=== PATIENT | male | born 1990 | race Caucasian/White ===

== ENCOUNTER 2024-03-15 08:53 | Emergency (ER) | payer SELFPAY ==
--- NOTE | 2024-03-15 09:24 | ED ---
General Adult HPI - General Chief complaint: Syncope Stated complaint: syncope Time Seen by Provider: 03/15/24 08:58 Source: patient, EMS, RN notes reviewed Mode of arrival: EMS Limitations: no limitations - History of Present Illness Initial comments: Patient is a 33-year-old male present to the emergency department as a transfer from [place]. Patient has been there for 4 days for alcohol and opiate use. Patient states he suddenly became dizzy. Patient felt lightheaded as well as somewhat of a spinning sensation. Patient states his heart was racing a little bit and he lowered himself towards the ground and then did lose consciousness for at least a second. No injury. No reported seizure. No history of similar symptoms previously. Patient states he has near normal at this time however feels that his heart rate might be a little bit increased. No dyspnea. No confusion. No headache. No weakness. No history of similar symptoms previously. - Related Data Home Medications Medication Instructions Recorded Confirmed Acetaminophen [Tylenol] 650 mg PO Q4H PRN MDD 2600mg 03/15/24 03/15/24 Calcium Phos/D3/Magnesium/Zinc 1 tab PO TID PRN 03/15/24 03/15/24 [Xiamnkv-Xov-Yfsx-Vitamin D3] Chlorpheniramine Maleate 4 mg PO Q4H PRN 03/15/24 03/15/24 [Chlor-Trimeton] Gabapentin [Neurontin] 300 mg PO TID 03/15/24 03/15/24 Hyoscyamine Sulfate [Levsin] 0.125 mg PO QID PRN 03/15/24 03/15/24 Ibuprofen [Motrin Ib] 600 mg PO Q6H PRN 03/15/24 03/15/24 Loperamide HCl [Imodium A-D] 4 mg PO QID PRN MDD 16 mg 03/15/24 03/15/24 Multivitamins, Thera [Multivitamin 1 tab PO DAILY 03/15/24 03/15/24 (formulary)] Thiamine [Vitamin B-1] 100 mg PO DAILY 03/15/24 03/15/24 cloNIDine HCL [Catapres] 0.1 mg PO Q4H PRN 03/15/24 03/15/24 ondansetron HCL [Zofran] 8 mg PO Q6H PRN 03/15/24 03/15/24 Allergies Allergy/AdvReac Type Severity Reaction Status Date / Time Penicillins AdvReac Nausea & Verified 03/15/24 10:13 Vomiting Review of Systems ROS Statement: Those systems with pertinent positive or pertinent negative responses have been documented in the HPI. ROS Other: All systems not noted in ROS Statement are negative. Constitutional: Denies: fever Eyes: Denies: eye pain ENT: Denies: ear pain Respiratory: Denies: cough, dyspnea Cardiovascular: Reports: as per HPI, palpitations. Denies: chest pain Endocrine: Denies: fatigue Gastrointestinal: Denies: abdominal pain Musculoskeletal: Denies: back pain Neurological: Reports: as per HPI. Denies: headache, weakness, confusion Past Medical History Additional Past Medical History / Comment(s): Hep C History of Any Multi-Drug Resistant Organisms: None Reported Past Surgical History: Adenoidectomy Additional Past Surgical History / Comment(s): Left leg lucien placed Past Psychological History: Anxiety Smoking Status: Current every day smoker, Vaper Past Alcohol Use History: Daily Past Drug Use History: Heroin, Prescription Drug Abuse General Exam Limitations: no limitations General appearance: alert, in no apparent distress Head exam: Present: atraumatic, normocephalic Eye exam: Present: normal appearance, PERRL, EOMI. Absent: nystagmus Neck exam: Present: normal inspection. Absent: tenderness Respiratory exam: Present: normal lung sounds bilaterally Cardiovascular Exam: Present: regular rate, normal rhythm Expanded Peripheral pulses: 2+: Radial (R), Radial (L), Posterior Tibialis (R), Posterior Tibialis (L) GI/Abdominal exam: Present: soft. Absent: distended, tenderness, pulsatile mass Extremities exam: Present: normal inspection, full ROM. Absent: tenderness Neurological exam: Present: alert, oriented X3, CN II-XII intact. Absent: motor sensory deficit Expanded Neurological exam: Present: protecting the airway Speech: Present: fluid speech Cranial nerves: EOM's Intact: Normal Sensory exam: Upper Extremity Light Touch: Normal, Lower Extremity Light Touch: Normal Motor strength exam: RUE: 5, LUE: 5, RLE: 5, LLE: 5 Eye Response: (4) open spontaneously Motor Response: (6) obeys commands Verbal Response: (5) oriented Psychiatric exam: Present: normal affect, normal mood Skin exam: Present: normal color Course Vital Signs 03/15/24 03/15/24 08:54 10:05 Temperature 97.3 F L Pulse Rate 90 100 Respiratory 18 18 Rate Blood Pressure 126/88 121/76 O2 Sat by Pulse 97 96 Oximetry EKG Findings - EKG Results: EKG: interpreted by CHRISTOD, sinus rhythm, normal axis, normal QRS, normal ST/T Medical Decision Making - Medical Decision Making Was pt. sent in by a medical professional or institution (, PA, LIVING MANAGER, urgent care, hospital, or longterm...) When possible be specific @ -Patient was sent from [facility] Did you speak to anyone other than the patient for history (EMS, parent, family, police, friend...)? What history was obtained from this source @ -No Did you review nursing and triage notes (agree or disagree)? Why? @ -I reviewed and agree with nursing and triage notes Were old charts reviewed (outside hosp., previous admission, EMS record, old EKG, old radiological studies, urgent care reports/EKG's, longterm records)? Report findings @ -Chart reviewed from [facility] Differential Diagnosis (chest pain, altered mental status, abdominal pain women, abdominal pain men, vaginal bleeding, weakness, fever, dyspnea, syncope, headache, dizziness, GI bleed, back pain, seizure, CVA, palpatations, mental health, musculoskeletal)? @ -Differential Syncope: Valvular disease, hypertrophic cardiomyopathy, pulmonary embolism, tamponade, tachycardia, bradycardia, AL, hypovolemia, hemorrhage, dissection, anemia, intracranial hemorrhage, seizure, hypoglycemia, carbon monoxide poisoning, this is not meant to be an all-inclusive list. EKG interpreted by me (3pts min.). @ -As above X-rays interpreted by me (1pt min.). @ -Chest x-ray shows no acute process CT interpreted by me (1pt min.). @ -CT brain reveals no acute process. CT chest shows no definitive pulmonary embolism. There is limitation U/S interpreted by me (1pt. min.). @ -None done What testing was considered but not performed or refused? (CT, X-rays, U/S, labs)? Why? @ -None What meds were considered but not given or refused? Why? @ -None Did you discuss the management of the patient with other professionals (shantanu angeles i.eRick Mitchell, PA, LIVING MANAGER, lab, RT, psych nurse, social service technician, investigations director, teacher, chairman & chief executive officer, piano case and bench assembler)? Give summary @ -No Was smoking cessation discussed for >3mins.? @ -No Was critical care preformed (if so, how long)? @ -No Were there social determinants of health that impacted care today? How? (Homelessness, low income, unemployed, alcoholism, drug addiction, transportation, low edu. Level, literacy, decrease access to med. care, alf, rehab)? @ -No Was there de-escalation of care discussed even if they declined (Discuss DNR or withdrawal of care, Hospice)? DNR status @ -No What co-morbidities impacted this encounter? (DM, HTN, Smoking, COPD, CAD, Cancer, CVA, ARF, Chemo, Hep., AIDS, mental health diagnosis, sleep apnea, morbid obesity)? @ -None Was patient admitted / discharged? Hospital course, mention meds given and route, prescriptions, significant lab abnormalities, going to OR and other pertinent info. @ -Patient presents with syncopal episode. Symptom-free on reevaluation. Patient denies ever having any chest discomfort or dyspnea. CT chest is not definitive however there is no large or central embolism and Wells criteria is 0. Patient would like to be discharged and return to rehab. Patient will be discharged Undiagnosed new problem with uncertain prognosis? @ -No Drug Therapy requiring intensive monitoring for toxicity (Heparin, Nitro, Insulin, Cardizem)? @ -No Were any procedures done? @ -No Diagnosis/symptom? @ -Syncope Acute, or Chronic, or Acute on Chronic? @ -Acute Uncomplicated (without systemic symptoms) or Complicated (systemic symptoms)? @ -Default Side effects of treatment? @ -No Exacerbation, Progression, or Severe Exacerbation? @ -No Poses a threat to life or bodily function? How? (Chest pain, USA, AL, pneumonia, PE, COPD, DKA, ARF, appy, cholecystitis, CVA, Diverticulitis, Homicidal, Suicidal, threat to staff... and all critical care pts) @ -No - Lab Data Result diagrams: 03/15/24 09:13 03/15/24 09:13 Lab Results 03/15/24 03/15/24 03/15/24 Range/Units 09:13 09:13 09:13 WBC 6.1 (3.8-10.6) k/uL RBC 5.00 (4.30-5.90) m/uL Hgb 11.6 L (13.0-17.5) gm/dL Hct 36.2 L (39.0-53.0) % MCV 72.3 L (80.0-100.0) fL MCH 23.1 L (25.0-35.0) pg MCHC 32.0 (31.0-37.0) g/dL RDW 15.6 H (11.5-15.5) % Plt Count 301 (150-450) k/uL MPV 6.2 Neutrophils % 77 % Lymphocytes % 17 % Monocytes % 4 % Eosinophils % 1 % Basophils % 0 % Neutrophils # 4.7 (1.3-7.7) k/uL Lymphocytes # 1.0 (1.0-4.8) k/uL Monocytes # 0.2 (0-1.0) k/uL Eosinophils # 0.1 (0-0.7) k/uL Basophils # 0.0 (0-0.2) k/uL Microcytosis Moderate PT (10.0-12.5) sec INR (<1.2) APTT (22.0-30.0) sec D-Dimer (<0.60) mg/L FEU Sodium 142 (137-145) mmol/L Potassium 4.1 (3.5-5.1) mmol/L Chloride 105 (98-107) mmol/L Carbon Dioxide 27 (22-30) mmol/L Anion Gap 10 mmol/L BUN 10 (9-20) mg/dL Creatinine 0.66 (0.66-1.25) mg/dL Est GFR (CKD-EPI)AfAm >90 (>60 ml/min/1.73 sqM) Est GFR (CKD-EPI)NonAf >90 (>60 ml/min/1.73 sqM) Glucose 114 H (74-99) mg/dL Calcium 9.4 (8.4-10.2) mg/dL Magnesium 2.0 (1.6-2.3) mg/dL Total Bilirubin 0.5 (0.2-1.3) mg/dL AST 40 (17-59) U/L ALT 37 (4-49) U/L Alkaline Phosphatase 82 (38-126) U/L Troponin I <0.012 (0.000-0.034) ng/mL Total Protein 8.1 (6.3-8.2) g/dL Albumin 4.5 (3.5-5.0) g/dL 03/15/24 Range/Units 10:04 WBC (3.8-10.6) k/uL RBC (4.30-5.90) m/uL Hgb (13.0-17.5) gm/dL Hct (39.0-53.0) % MCV (80.0-100.0) fL MCH (25.0-35.0) pg MCHC (31.0-37.0) g/dL RDW (11.5-15.5) % Plt Count (150-450) k/uL MPV Neutrophils % % Lymphocytes % % Monocytes % % Eosinophils % % Basophils % % Neutrophils # (1.3-7.7) k/uL Lymphocytes # (1.0-4.8) k/uL Monocytes # (0-1.0) k/uL Eosinophils # (0-0.7) k/uL Basophils # (0-0.2) k/uL Microcytosis PT 11.7 (10.0-12.5) sec INR 1.1 (<1.2) APTT 25.9 (22.0-30.0) sec D-Dimer 0.97 H (<0.60) mg/L FEU Sodium (137-145) mmol/L Potassium (3.5-5.1) mmol/L Chloride (98-107) mmol/L Carbon Dioxide (22-30) mmol/L Anion Gap mmol/L BUN (9-20) mg/dL Creatinine (0.66-1.25) mg/dL Est GFR (CKD-EPI)AfAm (>60 ml/min/1.73 sqM) Est GFR (CKD-EPI)NonAf (>60 ml/min/1.73 sqM) Glucose (74-99) mg/dL Calcium (8.4-10.2) mg/dL Magnesium (1.6-2.3) mg/dL Total Bilirubin (0.2-1.3) mg/dL AST (17-59) U/L ALT (4-49) U/L Alkaline Phosphatase (38-126) U/L Troponin I (0.000-0.034) ng/mL Total Protein (6.3-8.2) g/dL Albumin (3.5-5.0) g/dL Disposition Clinical Impression: Syncope Disposition: HOME SELF-CARE Condition: Stable Instructions (If sedation given, give patient instructions): Syncope (ED) Additional Instructions: Please do follow-up with your primary care physician in the next 1 or 2 days for recheck. Return for chest pain or difficulty in breathing, headache or confusion, weakness, passing out, seizures, worsening symptoms or any other concerns. Is patient prescribed a controlled substance at d/c from ED?: No Referrals: Nonstaff,Physician [Primary Care Provider] - 1-2 days Jerry Mata MD [REFERRING] - 1-2 days Time of Disposition: 11:54
[2024-03-15 09:26] LABS: Basophils % (A) 0 %; Eosinophils # (A) 0.1 k/uL (0-0.7); Eosinophils % (A) 1 %; HCT 36.2 % (39.0-53.0); HGB 11.6 gm/dL (13.0-17.5); Lymphocytes % (A) 17 %; MCH 23.1 pg (25.0-35.0); MCV 72.3 fL (80.0-100.0); Mean Platelet Volume 6.2; Microcytosis Moderate; Monocytes # (A) 0.2 k/uL (0-1.0); Monocytes % (A) 4 %; Neutrophils # (A) 4.7 k/uL (1.3-7.7); Neutrophils % (A) 77 %; Platelet Count 301 k/uL (150-450); RDW 15.6 % (11.5-15.5); WBC 6.1 k/uL (3.8-10.6)
[2024-03-15 09:43] LABS: ALT 37 U/L (4-49); AST 40 U/L (17-59); African American GFR (CKD) >90 (>60 ml/min/1.73 sqM); Albumin 4.5 g/dL (3.5-5.0); Alkaline Phosphatase 82 U/L (38-126); Anion Gap 10 mmol/L; Blood Urea Nitrogen 10 mg/dL (9-20); Calcium 9.4 mg/dL (8.4-10.2); Carbon Dioxide 27 mmol/L (22-30); Chloride 105 mmol/L (98-107); Glucose 114 mg/dL (74-99); Non-African American GFR(CKD) >90 (>60 ml/min/1.73 sqM); Potassium 4.1 mmol/L (3.5-5.1); Sodium 142 mmol/L (137-145); Total Bilirubin 0.5 mg/dL (0.2-1.3); Total Protein 8.1 g/dL (6.3-8.2)
--- NOTE | 2024-03-15 10:10 | XR ---
EXAMINATION TYPE: XR chest 2V DATE OF EXAM: 03/15/2024 COMPARISON: None HISTORY: 33-year-old male syncope TECHNIQUE: AP and lateral views FINDINGS: The cardiomediastinal silhouette, aorta, and pulmonary vasculature are within normal limits. Lungs an d pleural spaces are clear. IMPRESSION: No acute cardiopulmonary process. [facility], , 03/15/2024 10:08 AM
--- NOTE | 2024-03-15 10:17 | CT ---
EXAMINATION TYPE: CT brain wo con DATE OF EXAM: 03/15/2024 COMPARISON: None HISTORY: 33-year-old male syncope TECHNIQUE: Examination was done in axial plane without intravenous contrast. Coronal and sagittal r econstructions performed. CT DLP: 1095.7 mGycm Automated exposure control for dose reduction was used. FINDINGS: There is no evidence of acute intracranial hemorrhage, acute ischemic changes, mass, mass-effect, or extra-axial fluid collection. There is no effacement of cerebral sulci or basal subarachnoid cister ns. There is no hydrocephalus. There is no midline shift. Ravi-white matter distinction is preserv ed. Rightward nasal septal deviation. Trace mucosal thickening ethmoid air cells. Mastoid air cells well pneumatized. Orbits and globes are intact. IMPRESSION: No acute intracranial abnormality seen. [facility], , 03/15/2024 10:15 AM
[2024-03-15 10:32] LABS: INR 1.1 (<1.2); Partial Thromboplastin Time 25.9 sec (22.0-30.0); Prothrombin Time 11.7 sec (10.0-12.5)
--- NOTE | 2024-03-15 11:18 | CT ---
EXAMINATION TYPE: CT angio chest DATE OF EXAM: 03/15/2024 COMPARISON: Radiograph 03/15/2024 HISTORY: 33-year-old male with syncope, shortness of breath, elevated d-dimer TECHNIQUE: Contiguous axial scanning of the chest after the administration of 100 mL of Isovue 370. Coronal/sagittal MIP reconstructions performed. CT DLP: 389.4mGycm. Automatic exposure control utilized for a dose reduction. FINDINGS: The heart is normal size with a trace pericardial effusion measuring 4 mm thick. No flattening of the interventricular septum or reflux of contrast into the hepatic veins. Aorta normal caliber with a conventional branching anatomy. Residual strandy thymic tissue anterior mediastinum in keeping with patient's age. Right paratracheal lymph node measures 1 cm, borderline in size, likely reactive/post inflammatory. S imilarly, borderline sized right hilar lymph node. Otherwise, no thoracic lymphadenopathy by CT size criteria. Suboptimal contrast bolus with pulmonary arterial enhancement of only 150 Hounsfield units. Allowing for this limitation, no large central pulmonary embolus is seen. Lobar and more distal arterial branc hes are very limited and nondiagnostic. Lungs show minimal emphysematous change. There is mild patchy groundglass infiltrate in the right upp er lobe. No pleural effusion. Visualized upper abdomen shows mild splenomegaly at 14.0 cm. Bones: Scattered small endplate Schmorl's nodes at upper and lower thoracic spine. IMPRESSION: 1. Very limited/nondiagnostic contrast bolus. No large central pulmonary embolus is seen. The lobar a re more distal arterial branches are extremely limited to nondiagnostic. 2. COPD with minimal emphysema. Correlate for smoking history. 3. Some mild groundglass infiltrate in the right upper lobe. Correlate for early pneumonia. 4. Mild splenomegaly at 14.0 cm. Clinically correlate. [facility], , 03/15/2024 11:15 AM
[2024-03-15 12:08] VITALS: BP 125/79; PULSE 90; RESP 16; TEMP 98.9
== END 2024-03-15 12:18 | disposition home or self-care (01) ==
LOC: EC 08:53
CPT/HCPCS: 36415; 70450; 71046; 71275; 80053; 83735; 84484; 85025; 85379; 85610; 85730; 93005; 99285